=== PATIENT | female | born 1950 | race Caucasian/White ===

== ENCOUNTER → 2018-12-15 07:52 | Outpatient (CLI) | payer MEDICARE, SELFPAY ==
[2018-12-15 08:46] LABS: Add Manual Diff / Slide Review NO; Basophils Absolute Auto 0 /uL (0-100); Basophils Percent Auto 0.7 % (0-2); Eosinophils Absolute Auto 100 /uL (0-450); Eosinophils Percent Auto 2.2 % (2-4); Hematocrit 43.2 % (36-46); Hemoglobin 14.4 g/dL (12.0-16.0); Lymphocytes Absolute Auto 1900 /uL (1100-4500); Lymphocytes Percent Auto 36.7 % (25-40); Mean Corpuscular HGB Conc 33.3 % (30-36); Mean Corpuscular Hemoglobin 29.8 PG (26-34); Mean Corpuscular Volume 89.6 fL (80-100); Monocytes Absolute Auto 400 /uL (0-900); Monocytes Percent Auto 8.2 % (3-14); Neutrophils Absolute Auto 2700 /uL (1500-7000); Neutrophils Percent Auto 52.2 % (50-75); Platelet Count 211 X10^3/uL (150-400); Red Blood Cell Count 4.82 X10^6/uL (4.0-5.2); Red Cell Distribution Width 13.7 % (11.6-14.8); White Blood Cell Count 5.1 X10^3/uL (4.5-11.0)
[2018-12-15 09:03] LABS: Alanine Aminotransferase 30 IU/L (9-52); Albumin 4.2 g/dL (3.5-5.0); Albumin Globulin Ratio 1.4 (1.0-2.8); Alkaline Phosphatase 69 U/L (38-126); Aspartate Aminotransferase 25 IU/L (14-36); BUN Creatinine Ratio 17.5 (6-22); Bilirubin Total 0.4 mg/dL (0.2-1.3); Blood Urea Nitrogen 14 mg/dL (7-17); Calcium 9.4 mg/dL (8.4-10.2); Carbon Dioxide 30 mmol/L (22-32); Chloride 103 mmol/L (98-107); Cholesterol 190 mg/dL (140-199); Estimated Glomerular Filt Rate > 60.0 mL/min (>60); Globulin 2.9 g/dL (1.7-4.1); Glucose 94 mg/dL (80-110); HDL Cholesterol 57 mg/dL (40-60); HEMOLYSIS < 15 (0-50); LDL Cholesterol Calculated 118 mg/dL (<100); Potassium 3.8 mmol/L (3.4-5.1); Sodium 141 mmol/L (137-145); Total Protein 7.1 g/dL (6.3-8.2); Triglycerides 76 mg/dL (35-150)
[2018-12-15 10:03] LABS: TSH w/ Reflex to FT4 1.99 uIU/mL (0.47-4.68)
== END ==
PROVIDERS: PCP Family Medicine; Visit Provider Family Medicine
DX: Z00.01 Encounter for general adult medical examination with abnormal findings (principal)
CPT/HCPCS: 36415; 80053; 80061; 84443; 85025

== ENCOUNTER → 2019-01-23 09:04 | Outpatient (CLI) | payer MEDICARE, SELFPAY ==
--- NOTE | 2019-01-23 09:07 | DI.MG.S_ITS ---
BILATERAL DIGITAL SCREENING MAMMOGRAM 3D/2D WITH CAD: 01/23/2019 CLINICAL: Routine screening. Family history of breast cancer. Comparison is made to exams dated: 09/03/2016 mammogram, 11/05/2014 mammogram, and 09/28/2013 mammogram - [facility]. There are scattered fibroglandular elements in both breasts. Current study was also evaluated with a Computer Aided Detection (CAD) system. No significant masses, calcifications, or other findings are seen in either breast. There has been no significant interval change. IMPRESSION: NEGATIVE There is no mammographic evidence of malignancy. A 1 year screening mammogram is recommended. This exam was interpreted at Station ID: [id number]. NOTE: For mammograms, a report in lay terms will be sent to the patient. Approximately 15% of breast malignancies will not be visualized mammographically. In the management of a palpable breast mass, a negative mammogram must not discourage biopsy of a clinically suspicious lesion. Electronically Signed By: Trace prasad/rajani:01/23/2019 09:53:09 letter sent: Normal Exam ACR BI-RADS Category 1: Negative [id number]
== END ==
PROVIDERS: PCP Family Medicine; Visit Provider Family Medicine
DX: Z12.31 Encounter for screening mammogram for malignant neoplasm of breast (principal); Z80.3 Family history of malignant neoplasm of breast; Z13.820 Encounter for screening for osteoporosis; M85.852 Other specified disorders of bone density and structure, left thigh; Z78.0 Asymptomatic menopausal state
CPT/HCPCS: 77063; 77067; 77080

== ENCOUNTER → 2020-05-14 11:21 | Outpatient (CLI) | payer MEDICARE, SELFPAY | PROVIDERS: PCP Family Medicine; Visit Provider Family Medicine | DX: R32 Unspecified urinary incontinence (principal) | CPT/HCPCS: 87086 ==

== ENCOUNTER → 2020-07-15 08:40 | Outpatient (CLI) | payer OTHER, SELFPAY ==
[2020-07-15 09:46] LABS: Add Manual Diff / Slide Review NO; Basophils Absolute Auto 0 /uL (0-100); Basophils Percent Auto 0.6 % (0-2); Eosinophils Absolute Auto 100 /uL (0-450); Eosinophils Percent Auto 2.2 % (2-4); Hematocrit 43.5 % (36-46); Lymphocytes Absolute Auto 2000 /uL (1100-4500); Lymphocytes Percent Auto 34.5 % (25-40); Mean Corpuscular HGB Conc 34.4 % (30-36); Mean Corpuscular Hemoglobin 30.2 PG (26-34); Mean Corpuscular Volume 87.6 fL (80-100); Monocytes Absolute Auto 500 /uL (0-900); Monocytes Percent Auto 8.7 % (3-14); Neutrophils Absolute Auto 3200 /uL (1500-7000); Platelet Count 206 X10^3/uL (150-400); Red Blood Cell Count 4.96 X10^6/uL (4.0-5.2); Red Cell Distribution Width 13.7 % (11.6-14.8); White Blood Cell Count 5.9 X10^3/uL (4.5-11.0)
[2020-07-15 10:11] LABS: Alanine Aminotransferase 20 IU/L (<35); Albumin 4.4 g/dL (3.5-5.0); Albumin Globulin Ratio 1.8 (1.0-2.8); Alkaline Phosphatase 76 U/L (38-126); Aspartate Aminotransferase 26 IU/L (14-36); Bilirubin Total 0.9 mg/dL (0.2-1.3); Blood Urea Nitrogen 16 mg/dL (7-17); Calcium 9.3 mg/dL (8.4-10.2); Carbon Dioxide 25 mmol/L (22-32); Chloride 105 mmol/L (98-107); Estimated Glomerular Filt Rate > 60.0 mL/min (>60); Globulin 2.5 g/dL (1.7-4.1); Glucose 101 mg/dL (80-110); HEMOLYSIS < 15 (0-50); Potassium 4.2 mmol/L (3.4-5.1); Sodium 137 mmol/L (137-145); Total Protein 6.9 g/dL (6.3-8.2)
[2020-07-15 10:38] LABS: TSH w/ Reflex to FT4 2.62 uIU/mL (0.47-4.68)
== END ==
PROVIDERS: PCP Family Medicine; Referring Provider Family Medicine; Visit Provider Family Medicine
DX: Z00.00 Encounter for general adult medical examination without abnormal findings (principal); R80.9 Proteinuria, unspecified
CPT/HCPCS: 36415; 80053; 84443; 85025

== ENCOUNTER → 2020-07-23 15:20 | Outpatient (CLI) | payer OTHER, SELFPAY | PROVIDERS: PCP Family Medicine; Visit Provider Family Medicine | DX: N39.0 Urinary tract infection, site not specified (principal) | CPT/HCPCS: 87086 ==

== ENCOUNTER → 2020-08-01 14:33 | Outpatient (CLI) | payer OTHER, SELFPAY ==
--- NOTE | 2020-08-01 14:35 | DI.US.S_ITS ---
PROCEDURE: US RENAL COMPLETE INDICATIONS: urinary leakage and encontance TECHNIQUE: Real-time scanning was performed of the kidneys and bladder, with image documentation. COMPARISON: [facility], , CT ABDOMEN W/WO CONTRAST, 05/10/2000, 12:56. FINDINGS: Kidneys: Kidneys are normal in size. Right kidney measures 10.0 cm long; left kidney measures 10.5 cm long. Right renal cortical thickness is 1.2 cm; left renal cortical thickness is 1.4 cm. Renal cortical echotexture is normal. No hydronephrosis or nephrolithiasis. No suspicious solid mass lesions. Bladder: Pre-void bladder volume is 45 mL. Post-void residual is 2.4 mL. Pre-void images demonstrate no intraluminal masses or stones. On pre-void images, neither ureteral jets are noted with color Doppler interrogation. (Of note, ureteral jets may not be detectable in up to 25% of cases due to insufficient differences in specific gravity between ureteral and bladder urine). 4 cm bladder stone. Miscellaneous: No free pelvic fluid. IMPRESSION: 1. Normal appearance of the kidneys bilaterally. 2. 4 cm urinary bladder stone. Dictated by: Vahid Hoyt [facility] Interpreted: Patrice Qiu MD on 08/01/2020 at 15:54 Approved by: Patrice Qiu M.D. on 08/01/2020 at 16:00
== END ==
PROVIDERS: PCP Family Medicine; Referring Provider Family Medicine; Visit Provider Family Medicine
DX: R32 Unspecified urinary incontinence (principal); N21.0 Calculus in bladder
CPT/HCPCS: 76770

== ENCOUNTER → 2020-08-21 13:33 | Outpatient (CLI) | payer OTHER, SELFPAY ==
--- NOTE | 2020-08-21 13:40 | DI.CT.S_ITS ---
PROCEDURE: CT KIDNEY URETER BLADDER (KUB) INDICATIONS: abnormal UA TECHNIQUE: Noncontrast 5 mm thick sections acquired from the diaphragms to the symphysis. 5 mm thick coronal and sagittal reformats were then performed. For radiation dose reduction, the following was used: automated exposure control, adjustment of mA and/or kV according to patient size. COMPARISON: None. FINDINGS: Image quality: Excellent. Lung bases: Lung bases are clear. Heart size is normal. Urinary system: Both kidneys are normal in size. No kidney stones. No hydronephrosis or perinephric fat stranding. A low-density cystic lesion is present within the midpole of the left kidney. Both ureters appear non-dilated throughout their expected courses. Abram bladder wall thickness is normal. There is a 3.8 x 2.5 by 2.6 cm calcified stone within the bladder which measures approximately 900 Hounsfield units in density. The uterus and ovaries are not visualized and may be surgically absent. Other solid organs: Liver is normal in size. Gallbladder for is surgically absent . Pancreas is normal in contours. Spleen is normal in size. No adrenal nodules. Peritoneum and bowel: Unenhanced bowel loops demonstrate normal wall thickness and caliber. The appendix is not visualized; however there is no discrete right lower quadrant fluid or fat stranding to suggest acute appendicitis. There are scattered sigmoid diverticula. No evidence for diverticulitis. No free fluid or air. Nodes and vessels: No retroperitoneal or mesenteric adenopathy by size criteria. Aorta and inferior vena cava are normal in caliber. Abdominal wall: No ventral hernias. Pelvis: No free pelvic fluid. No inguinal hernias or adenopathy. Phleboliths are scattered throughout the pelvis. Bones: No suspicious bony lesions. No vertebral body compression fractures. IMPRESSION: 1. No hydronephrosis, nephrolithiasis, hydroureter, or ureterolithiasis. 2. Large calcified stone within the bladder which measures approximately 900 Hounsfield units in density suggesting either a struvite or cystine stone. Dictated by: Priya Yeager M.D. on 08/21/2020 at 14:14 Approved by: Priya Yeager M.D. on 08/21/2020 at 14:23
== END ==
PROVIDERS: PCP Family Medicine; Referring Provider Family Medicine; Visit Provider Specialist
DX: R32 Unspecified urinary incontinence (principal); R82.90 Unspecified abnormal findings in urine; N21.0 Calculus in bladder
CPT/HCPCS: 74176

== ENCOUNTER → 2020-08-26 15:46 | Outpatient (CLI) | payer OTHER, SELFPAY | PROVIDERS: PCP Family Medicine; Visit Provider Specialist | DX: N39.0 Urinary tract infection, site not specified (principal); N21.0 Calculus in bladder; N39.41 Urge incontinence; N39.3 Stress incontinence (female) (male); Z87.440 Personal history of urinary (tract) infections | CPT/HCPCS: 81002; 87086; 99214 ==

== ENCOUNTER 2020-09-29 12:25 | Inpatient (IN) | payer OTHER, SELFPAY ==
[2020-09-25 14:57] VITALS: BMI 32.1
[2020-09-29] VITALS (16 sets, daily range): BP systolic 143–180; BP diastolic 70–92; PULSE 57–72; RESP 10–20; TEMP 36.1–37.8; O2SAT 93–99; BMI 32.1
[2020-09-29] MEDS: LACTATED RINGERS 1,000 ML 42 ML IV ×2 (14:11→16:19)
--- NOTE | 2020-09-29 14:21 | PM.HP.1 ---
History of Present Illness History of Present Illness Date Patient Seen: 09/29/20 Time Patient Seen: 14:21 Chief complaint: OPEN VESICAL LITHOTOMY Narrative: Beronica is a 70-year-old M1 white female who presented recently with a numerous month or several year history of increasing lower urinary tract symptoms and urge incontinence. She is at a point where she is wearing heavy pads. She has a decades long history of recurrent UTI but denies having had a history of pyelonephritis. Ultrasound 08/01/2020, reports a [address] KUB 08/21/2020, reveals normal kidneys and upper tracts bilaterally and confirms the presence of a 4 cm maximal dimension bladder calculus. Hounsfield units were 900 suggesting a struvite calculus. Patient History Medical History (Updated 09/29/20 @ 14:26 by Barber Espinoza MD) Abnormal urinalysis (Acute) Acne (Chronic) Benign familial tremor (Chronic ~2011) Bladder calculus (Acute) Bladder calculus (Acute) Chicken pox (Resolved) Fractures (Chronic) History of UTI (Acute) Measles (Resolved) Mumps (Resolved) Recurrent UTI (urinary tract infection) (Acute) Retinal detachment (Chronic) Stress incontinence in female (Acute) Urge incontinence (Acute) Vision disorder (Chronic) Surgical History Anesthesia (Resolved) History of tonsillectomy Status post appendectomy Status post cholecystectomy Status post hysterectomy Status post LASIK surgery Family & Social History Family History Grandfather Cancer Grandmother Heart disease Mother Cancer Sister Age: 59 Heart disease Social History: household members family,children Prior Living Arrangements House Tobacco & Substance use: Smoking Status Never smoker alcohol intake never Substance Use Type does not use Meds Home Medications and Allergies Home Medications Medication Instructions Recorded Confirmed Type ascorbic acid (vitamin C) 500 mg PO QDAY #0 tab 08/18/16 09/29/20 History cholecalciferol (vitamin D3) 2,000 unit PO QDAY #0 08/18/16 09/29/20 History [Vitamin D3] lysine HCl 1,000 mg PO QDAY #0 08/18/16 09/29/20 History cranberry extract 250 mg capsule 250 mg PO DAILY 08/26/20 09/29/20 History echinacea 380 mg capsule 380 mg PO DAILY 08/26/20 09/29/20 History ferrous sulfate 27 mg iron tablet 27 mg PO DAILY 08/26/20 09/29/20 History ginkgo biloba 120 mg tablet 120 mg PO DAILY 08/26/20 09/29/20 History Lactobacillus acidophilus 10,000 mmu cells PO DAILY 09/29/20 09/29/20 History [Probiotic] calcium dvs-nht-L3-Zn-stroboscope operator-ronen 1 tab PO DAILY 09/29/20 09/29/20 History pxpbypwqudj-paw-gxevppcjs-vitC 1 cap PO DAILY 09/29/20 09/29/20 History [Glucosamine Complex-MSM] Allergies Allergy/AdvReac Type Severity Reaction Status Date / Time Penicillins [PENICILLINS] Allergy Mild VOMIT Verified 09/29/20 13:33 Sulfa (Sulfonamide Allergy Unknown Verified 09/29/20 13:33 Antibiotics) [SULFA (SULFONAMIDE ANTIBIOTICS)] primidone AdvReac Unknown N/V, chest Verified 09/29/20 13:33 pressure OPIATE AGONISTS (NARCOTICS) Allergy Mild loopy and Uncoded 09/29/20 13:33 emesis Exam Vital Signs (past 8 hours): - 09/29/20 13:54 Temperature 98.4 F Pulse Rate 59 L Respiratory Rate 16 Blood Pressure 151/80 H Pulse Oximetry 95 Oxygen Delivery Method Room Air Narrative Exam Narrative: She is a well-developed and well-nourished white female appearing younger than stated age and in no current distress. Head/neck-sclera clear pupils are equal and round bilaterally. The neck is supple without JVD or adenopathy. Chest-equal, clear, and unlabored expansion bilaterally. Heart-regular rhythm and regular rate. No clicks, rubs, or murmurs appreciated. Abdomen-bowel sounds are normal and active. Contours protuberant and consistency is doughy. No localizing tenderness. Assessment & Plan Assessment and plan (1) Bladder calculus: Problem details: Reviewed findings and discussed impression and options including laser lithotripsy versus open vesical lithotomy. Explained the pros and cons perioperative expectations and recovery of each. She elects the latter. Explain the common side effects, possible complications, perioperative limitations/restrictions, and reasonable expectations of outcome and recovery following open vesical lithotomy. Her clarifying questions were limited mainly to those relating to logistics of postoperative recovery and return visit appointments. They were answered to her satisfaction at the encounter and she wishes to proceed. Status: Acute (2) Recurrent UTI (urinary tract infection): Status: Acute Assessment & Plan narrative: 1. Schedule OPEN VESICAL LITHOTOMY.
--- NOTE | 2020-09-29 14:26 | PM.PREOP ---
Pre-operative Note Interval Note History & Physical reviewed/Exam performed by Physician: Yes Changes to H&P: No
[2020-09-29] MEDS: GENTAMICIN 160 MG in SODIUM CHLORIDE 0.9% 100 ML 104 ML IV (14:37)
[2020-09-29] MEDS: VANCOMYCIN 1,000 MG/200 ML PIGGYBACK 200 MG IV (14:44)
--- NOTE | 2020-09-29 15:22 | SUR.OPER ---
Supine on padded OR bed, head on pillow, arms secured on padded arm boards at <90 degrees abduction, legs frog-legged, heels padded with gel pad, blanket over lower legs with safety belt, tape securing knees to bed, blankets rolls under knees to support.
[2020-09-29] MEDS: BUPIVACAINE LIPOSOME 266 MG/20 ML VIAL INJ (15:36)
--- NOTE | 2020-09-29 16:20 | P.OP_ITS ---
Operative Date/Time/Diagnoses Date of procedure: 09/29/20 Time of procedure: 16:20 Pre-op diagnosis: Large bladder calculus Post-op diagnosis: same Procedure & Clinicians Procedure: 1. Open vesical lithotomy Same procedure as scheduled: Yes Indications: 1. Large bladder calculus. 2. History recurrent UTI. 3. Severe lower urinary tract symptoms. Surgeon: Barber Espinoza Click Yes if Unassisted: Yes Anesthesia Type: General and Local (1.33% Exparel) Operative Notes Findings: 1. Normal anterior abdominal wall tissue planes. 2. Pyramidal shape bladder calculus with foot looks like some type of threat or string as a nidus foreign body. Closure Type: primary Specimen(s): other (Bladder calculus) Applied: catheter (#18F [address] way Huntley catheter) Estimated Blood Loss (mL): 10 Blood products transfused: none Tourniquet time (min): 0 Procedure in detail: Patient was positioned in supine was administered general anesthesia. She was then repositioned in modified frog-leg supine with her lateral knees and legs supported. The abdomen, genitalia, and perineum were then prepped and draped in sterile fashion. An 18 Sinhala Huntley catheter was inserted the bladder and the bladder was filled with 360 cc of sterile saline. Next, a low Pfannenstiel incision was made about 2 fingerbreadths above the superior margin of the pubic symphysis. Cautery a and blunt dissection were carried out through the generous subcutaneous fat layer down the level of the external oblique fascia. A limited curvilinear incision of the was then made in the anterior rectus fascia. The rectus muscle bundles were then in the midline and retracted laterally. A generous layer of overlying preperitoneal fat was then dissected laterally in both directions from the anterior superior wall the bladder using blunt technique. A single 2-0 silk suture was used as a stay on each side of the midline. The cystotomy was then made with the cautery pen and extended a limited distance in the midline. A ring forceps was then used to engage the large calculus within the bladder lumen and extracted intact. It was then submitted for analysis and culture. The cystotomy was closed in 2 layers by 1st utilizing and inter 4-0 Monocryl layer on the mucosal muscular edges. A 2nd layer of 2-0 Monocryl was then utilized using a running vertical mattress incorporating the serosa muscular layer. The bladder was then irrigated clear number no clots. There was no evidence of leakage along the anastomotic line. Next, a 15 Sinhala Jose drain was put in the space of Retzius and brought out through a separate stab incision to the right of inferior to the Pfannenstiel incision. The drain was secured in place using a Kev sandals technique of 2-0 silk. The rectus muscle bundles were then reapproximated with interrupted [id number]-[id number] 4-0 Monocryl. The rectus fascia was then closed using running 0 PDS from each apex and then yoana 1 another together at the approximate midline. Next, the subcutaneous layer was reapproximated with at the level of the Cynthia's fascia using a running 2 0 Vicryl. Finally, the skin was reapproximated using a running 4-0 Monocryl. Incision line was then dressed with a thin strip of Telfa gauze and then over this a generous sheet of op site was applied to the skin creating a Bioclusive dressing. The same approach was applied to the drain site exit. The Jose drain was attached to bulb self suction and the Huntley catheter was attached to gravity drainage. The patient was then repositioned in supine. Patient was then awakened, transferred to [facility], and transferred to recover. Complications: none Post-operative Condition: stable Disposition: PACU Plan for aftercare: Admit to acute care
[2020-09-29] MEDS: ONDANSETRON 4 MG/2 ML INJ IV ×2 (16:57→17:44)
[2020-09-29] MEDS: METOCLOPRAMIDE 10 MG/2 ML INJ IV (17:09)
--- NOTE | 2020-09-29 17:50 | SUR.PHASEI ---
Report called to floor Rn 20 minutes ago, pt kept in recovery room for nausea and vomitting but feeling better now pt states after receiving 2 doses of zofran and one of reglan iv. Pt transferred to room now in stable condition, denies pain
[2020-09-29] MEDS: LACTATED RINGERS 1,000 ML 125 ML IV (18:19)
--- NOTE | 2020-09-29 18:19 | SUR.PHASEI ---
1755-Pt transferred to floor and handoff to EVERARDO Mendez in room. Pt had one bout of nausea and vomitting on the way upstairs with scant bile
--- NOTE | 2020-09-29 21:30 | PC.NURSE ---
A&OX3, 97% on 2L. has essential tremors. dressing has shadow drainage but not leaking. chris drain intact and compressed. mario patent. IVF. had sips of water but mostly been sleeping tonight. pain 12/07. pt will call for pain meds.
[2020-09-30] VITALS (7 sets, daily range): BP systolic 133–164; BP diastolic 59–86; PULSE 61–91; RESP 15–20; TEMP 36.1–37.1; O2SAT 95–97
--- NOTE | 2020-09-30 00:25 | PC.NURSE ---
Patient is alert and oriented and arouses easily from sleep. Breath sounds CTA with sat of 97% on 2L/min oxygen per NC so O2 decreased to 1L/min in attempt to titrate off; continues on continuous pulse oximetry. HRR. BP elevated at 164/86 which is consistent with previous readings. Denies nausea at this time. BT hypoactive and patient not passing flatus as yet. Abdomen is soft but tender over lower abdomen. Dressing to lower abdomen is intact but saturated with sanguinous drainage but without leakage. Jose drain is compressed and intact. Is able to turn with minimal assistance so repositioned onto right side. Indwelling catheter is patent; urine is clear, light jc. Wearing bilateral calf SCD's. Denies pain. Fall risk score is moderate and bed alarm is activated for safety; patient verbalizes understanding.
[2020-09-30] MEDS: LACTATED RINGERS 1,000 ML 125 ML IV (02:43)
--- NOTE | 2020-09-30 07:27 | PM.PN.1 ---
Subjective Subjective Date Patient Seen: 09/30/20 Time Patient Seen: 07:27 Interval history: Patient is postoperative morning 1. Status post open vesical lithotomy. She reports a uneventful night. She denies significant pain and is not requiring additional analgesics. She is tolerating clear liquids and water and denies nausea or vomiting. Exam Vital Signs (past 8 hours): - 09/30/20 00:17 09/30/20 04:14 Temperature 97.0 F L 96.9 F L Pulse Rate 66 89 Respiratory Rate 20 18 Blood Pressure 164/86 H 162/75 H Pulse Oximetry 97 97 Oxygen Delivery Method Nasal Cannula Oxygen Flow Rate 1 Narrative Exam Narrative: She is resting comfortably in bed and in no distress. Chest-equal and clear expansion bilaterally. Heart-regular rate and rhythm. Abdomen-obese and soft bowel sounds are active dressings are intact. CONNOR was serosanguineous scant output. Huntley indwelling with clear light yellow output. Assessment & Plan Assessment & Plan narrative: Assessment: 1. Stable postop day 1. Status post OPEN VESICAL LITHOTOMY. 2. Stone analysis and culture pending. Plan: 1. Increase diet and activity today. 2. Catheter care and use instruction.
[2020-09-30] MEDS: ASCORBIC ACID 500 MG TABLET PO (09:54)
[2020-09-30] MEDS: MULTIVIT,CALC,MINS/IRON/FOLIC 1 TABLET 1 TAB PO (09:54)
[2020-09-30] MEDS: LACTOBACILLUS ACIDOPHILUS TABLET 1 EACH PO (09:54)
[2020-09-30] MEDS: CHOLECALCIFEROL (VITAMIN D3) 1,000 UNIT TABLET 2000 UNIT PO (09:54)
--- NOTE | 2020-09-30 11:14 | PC.NURSE ---
Addendum entered by Darnell Lawler R.N. 09/30/20 13:57: Per Dr. Espinoza, saturated dressing removed and wendy pad placed w/ tape over incision. Addendum entered by Darnell Lawler R.N. 09/30/20 13:51: Dr. Espinoza updated about patient progress at 1300. will be in to see patient after clinic. Original Note: Patient tolerated PO intake breakfast, no nausea. Patient denies pain, but states that she knows the incision is there. Patient incision is saturated, will call Dr. Espinoza regarding his plan for the dressing. Patient has ambulated in the hallway, feels strong.
--- NOTE | 2020-09-30 15:24 | CM.DANOTE ---
DCP/Assessment: Reviewed chart. Patient is a 70yr old female admitted to [facility] for bladder surgery performed by Dr. Espinoza. PCP listed is Dr. Andersen. Primary payor is 1[facility]. Met with patient explained CM/SW role. Patient reports that she currently is staying at friend's in [place]. Patient resides in [place]. Patient reports that she came to [place] to have the procedure because her insurance. Patient I in all ADL's. Patient reports that she will be going to her friend's in [place] at time of d/c. Patient plans to return to [place] once she has recovered. P: Home with friend's when medically stable. CM team to continue to follow. DOMINGA Snyder Discharge Planning/Care Management CM Discharge Assessment Start: 09/30/20 15:15 Freq: Status: Active Protocol: Document 09/30/20 15:15 KJS (Rec: 09/30/20 15:24 KJS [id number]) Discharge Planning Assessment Assigned Vegetable Washer DOMINGA Snyder Contact Information Emily Sanders (daughter) Advance Directives? Yes History Provided By Patient,Medical Record Prior Living Arrangements House Household Members family,children Type of transporation used prior to Drives own vehicle admit Independent with ADL's Yes Is patient alert and oriented? Yes Caregiver for Another No Barriers to Discharge No Discharge Plan Home Transportation Arrangement Family/friend to provide transport. Whiteboard Updated in Patient Room with Yes name and ext. # of Vegetable Washer Review Status In Process Next Review Type Continued Stay Review Pre-Anesthesia Assessment Start: 09/25/20 14:57 Freq: Status: Complete Protocol: Document 09/25/20 14:57 CAB (Rec: 09/25/20 15:03 CAB [id number]) Pre-Anesthesia Assessment Preferred Name Carly Patient Information Reviewed Via Chart Review Diagnostic Results BMP/CMP,CBC,Urinalysis Comment Recent labs @ [facility], COVID screen not identified Primary Care Provider Maury Andersen Seen Specialist in Last 12 Months Yes Specialist Seen Urologist Primary Language Sami Latin American Studies Professor Required No Height 157.48 cm Weight 79.832 kg Body Mass Index (BMI) 32.1 Barriers to Learning None Anesthesia Review Requested No alcohol intake never Smoking Status Never smoker Pain Present Pain Reported Patient is completely paralyzed or No completely immobile Mental Status Oriented to own ability Hx Sleep Apnea No Currently Taking a Beta Rosey No Anti-Coagulant Therapy No Hx Pacemaker/ICD No Pacemaker Rep Required? No Genitourinary Symptoms Dysuria Bladder Pattern Incontinent,Nocturia,Urgency Urinary Catheter Present No Hx Urinary Self Catheterization No Diabetes No Patient No Lactating No Have you had any close contact with Unknown someone diagnosed with COVID-19? Marital Status Patient Discharge Plan Description Return Home
--- NOTE | 2020-09-30 17:33 | PM.PN.1 ---
Subjective Subjective Date Patient Seen: 09/30/20 Exam Vital Signs (past 8 hours): - 09/30/20 11:51 09/30/20 15:48 Temperature 98.6 F 98.4 F Pulse Rate 64 62 Respiratory Rate 15 18 Blood Pressure 133/59 L 145/73 H Pulse Oximetry 95 97 Oxygen Delivery Method Room Air Oxygen Flow Rate 0
[2020-09-30] MEDS: SODIUM CHLORIDE 0.9% FLUSH 10 ML IV (20:06)
[2020-10-01 00:10] VITALS: BP 153/70; PULSE 73; RESP 18; TEMP 36.8; O2SAT 95
--- NOTE | 2020-10-01 00:50 | PC.NURSE ---
pt easy to arouse, pt was pleasant, A&O x 4. Pt denies pain at this time. Incision site assessed and was covered with a wendy pad and tape over the pad. Dried blood over abdomen and wendy area noted. Pad was 25% saturated with blood. There is small open area from the incision site and appears that it is where the drainage is coming from. MD already aware of the drainage. Jose drain does not have suction. Aske EVERARDO Padilla for help and confirmed that Jose drain lost its suction. As per Valerie's advice, note jose drain lose of suction as well as the opening from the inciison site and will notify the MD in the morning since pt does not have any active drainage at this time. This process description writer performed wendy care and mario care on pt. Incision site cleaned with normal saline and gauze. Covered with wendy pad and ABD pad with a tape over ABD pad. Pt tolerated dressing change wiht no complaints and went back to sleep. Bed on lowest position, call light within reach, will continue to monitor
[2020-10-01 05:00] VITALS: BP 142/77; PULSE 62; RESP 18; TEMP 36.9; O2SAT 96
--- NOTE | 2020-10-01 07:24 | PM.PN.1 ---
Subjective Subjective Date Patient Seen: 10/01/20 Time Patient Seen: 07:24 Interval history: The patient is postoperative day 2. Status post open vesical lithotomy. She reports again an uneventful night and denies any significant pain. She is tolerating p.o. well. She is passing flatus. Exam Vital Signs (past 8 hours): - 10/01/20 00:10 10/01/20 05:00 Temperature 98.2 F 98.5 F Pulse Rate 73 62 Respiratory Rate 18 18 Blood Pressure 153/70 H 142/77 H Pulse Oximetry 95 96 Oxygen Delivery Method Room Air Oxygen Flow Rate 0 Narrative Exam Narrative: She is sitting upright in a chair reading and in no acute distress. Chest-equal unlabored expansion bilaterally. Heart-regular rate and rhythm. Abdomen-obese and soft. Incision intact except for a 3 mm superficial separation at the right lateral corner. No active bleeding or exudate. Small amount of serosanguineous spotting on dry dressing. Assessment & Plan Assessment & Plan narrative: Assessment: 1. Stable postop day 2. Status post open vesical lithotomy. Plan: 1. Discharge home today. 2. Catheter care use and removal instructions as ordered 09/30/20. 3. Final stone analysis and culture pending. Will follow up on refer final results after discharge.
[2020-10-01] MEDS: ASCORBIC ACID 500 MG TABLET PO (08:32)
[2020-10-01] MEDS: LACTOBACILLUS ACIDOPHILUS TABLET 1 EACH PO (08:32)
[2020-10-01] MEDS: CHOLECALCIFEROL (VITAMIN D3) 1,000 UNIT TABLET 2000 UNIT PO (08:32)
[2020-10-01] MEDS: MULTIVIT,CALC,MINS/IRON/FOLIC 1 TABLET 1 TAB PO (08:32)
[2020-10-01] MEDS: SODIUM CHLORIDE 0.9% FLUSH 10 ML IV (08:32)
[2020-10-01 08:47] VITALS: BP 154/75; PULSE 61; RESP 17; TEMP 37; O2SAT 96
[2020-10-01 11:45] VITALS: BP 146/75; PULSE 58; RESP 16; TEMP 36.7; O2SAT 99
--- NOTE | 2020-10-01 13:35 | PC.NURSE ---
Patient incision site bandage changed at 1100, wendy pad w/ ABD on top and surgical tape. Mario catheter bag changed to leg bag. Patient was educated about cleaning mario tubing, wendy care, and draining leg bag. Patient educated about when to take mario out and how to do it, also given written instructions. Patient educated about activity and signs and symptoms of infection. Patient also given hand outs with all explanations. Patient verbalized understanding of teaching. Patient discharged via wheelchair with friend in private vehicle.
[2020-10-07 14:52] LABS: Size 30X40; Stone Analysis Source URINARY BLADDER
[2020-10-07 14:54] LABS: Carbonate Apatite 30
[2020-10-07 14:56] LABS: Ca oxalate monohydr 40
== END 2020-10-01 13:39 | disposition home or self-care (01) | DRG 664 ==
PROVIDERS: Admitting Provider Specialist; PCP Family Medicine; Referring Provider Specialist; Visit Provider Specialist
PROC: 0TCB0ZZ Extirpation of Matter from Bladder, Open Approach (ICD-10-PCS; CPT 51800; principal; 2020-09-29 14:00)
DX: N21.0 Calculus in bladder (principal); N39.41 Urge incontinence; E66.9 Obesity, unspecified; Z68.32 Body mass index [BMI] 32.0-32.9, adult; Z87.440 Personal history of urinary (tract) infections
CPT/HCPCS: 51050; 82365; 87070; 87075; 87086; 87205; 94762; C9290; J0330; J1100; J2250; J2405; J2704; J2765; J3010